=== PATIENT | male | born 1955 | race Caucasian/White ===

== ENCOUNTER 2017-11-25 11:12 | Emergency (ER) | payer MEDICAID ==
[~2017-11-25] VITALS: Ht 177.8 cm; Wt 63.0 kg
[2017-11-25 11:55] VITALS: BP 120/60
== END 2017-11-25 11:56 | disposition left against medical advice (07) ==
LOC: ED 11:50
DX: B86 Scabies (principal); F17.200 Nicotine dependence, unspecified, uncomplicated
CPT/HCPCS: 99283

== ENCOUNTER 2018-01-28 18:54 | Inpatient (IN) | payer MEDICAID ==
[~2018-01-28] VITALS: Ht 177.8 cm; Wt 64.5 kg
[2018-01-28] MEDS ORDERED: AZITHROMYCIN 250 MG TABLET PO ONE (19:30)
[2018-01-28] MEDS ORDERED: ALBUTEROL/IPRATROPIUM 2.5MG/0.5MG, 3 ML NPPB SCH (19:30)
[2018-01-28] MEDS ORDERED: ACETAMINOPHEN 325 MG TABLET PO ONE (19:30)
[2018-01-28] MEDS ORDERED: ALBUTEROL/IPRATROPIUM 2.5MG/0.5MG, 3 ML ONE (19:31)
[2018-01-28] MEDS ORDERED: AZITHROMYCIN 250 MG TABLET ONE (19:36)
[2018-01-28] MEDS ORDERED: ACETAMINOPHEN 325 MG TABLET ONE (19:36)
[2018-01-28 19:56] LABS: ALBUMIN 3.3 g/dL (3.4-5.0); ANION GAP 8 mmol/L (5-15); CALCIUM 8.7 mg/dL (8.5-10.1); CHLORIDE 104 mmol/L (98-107); CREATININE 0.68 mg/dL (0.7-1.3)
[2018-01-28 20:05] LABS: MD YES; MEAN CORPUSCULAR HGB CONC 33.8 g/dL (33.2-36.2); MEAN CORPUSCULAR VOLUME 100.4 fL (81-97); MEAN PLATELET VOLUME 7.2 fL (7.4-10.4); PLATELET COUNT 197 x10^3/uL (130-400); RED BLOOD COUNT 3.74 x10^6/uL (4.38-5.82); RED CELL DISTRIBUTION WIDTH 17.5 % (9.4-14.8); TROPONIN I 0.357 ng/mL (0.000-0.045)
[2018-01-28 20:10] LABS: BAND#(MANUAL) 2.67 x10^3/uL; BANDS%(MANUAL) 17 % (0-7); LYMPH#(MANUAL) 0.63 x10^3/uL (1-3.4); LYMPHS% (MANUAL) 4 % (22-44); MONOS#(MANUAL) 0.94 x10^3/uL (0.3-2.7); MONOS% (MANUAL) 6 % (2-9); SEG#(MANUAL) 11.46 x10^3/uL (1.8-6.8); SEGS% (MANUAL) 73 % (42-75)
[2018-01-28 20:12] LABS: <PLATELET ESTIMATE> ADEQUATE; <PLT MORPHOLOGY> NORMAL PLT MORPH; <RBC MORPHOLOGY> NORMAL
[2018-01-28] MEDS ORDERED: ASPIRIN 325 MG TABLET ONE (20:13)
[2018-01-28 20:14] LABS: PMNS WITH VACUOLES 1+
[2018-01-28] MEDS ORDERED: IBUP-1223 PO (20:20)
[2018-01-28] MEDS ORDERED: ALBU1.25 NEB (20:20)
[2018-01-28] MEDS ORDERED: SERT100T PO (20:20)
[2018-01-28] MEDS ORDERED: FLUT1DIS3 INH (20:20)
[2018-01-28] MEDS ORDERED: ASPIRIN 325 MG TABLET PO ONE (20:30)
[2018-01-28] MEDS ORDERED: CEFTRIAXONE 1,000 MG in SODIUM CHLORIDE 0.9% 50 ML IV ONE (20:30)
[2018-01-28] MEDS ORDERED: CEFTRIAXONE PMX 1GM/50ML 50 ML ONE (20:53)
[2018-01-28] MEDS ORDERED: ENOXAPARIN 40 MG/0.4 ML ONE (21:20)
[2018-01-28] MEDS ORDERED: NICOTINE 21 MG/24 HR PATCH.TD24 ONE (21:20)
[2018-01-28] MEDS: NICOTINE 21 MG/24 HR PATCH.TD24 TD SCH (21:22)
[2018-01-28] MEDS: ENOXAPARIN 40 MG/0.4 ML SQ SCH (21:22)
[2018-01-28] MEDS: SODIUM CHLORIDE 0.9% 1,000 ML IV SCH (21:26)
[2018-01-28] MEDS ORDERED: CEFTRIAXONE 2,000 MG in DEXTROSE 5% 50 ML IV SCH (21:30)
[2018-01-28] MEDS ORDERED: ONDANSETRON ODT 4 MG PO PRN (21:30)
[2018-01-28] MEDS ORDERED: ALBUTEROL/IPRATROPIUM 2.5MG/0.5MG, 3 ML NPPB PRN (21:30)
[2018-01-28] MEDS ORDERED: ONDANSETRON 2MG/ML, 2ML IVPush PRN (21:30)
[2018-01-28] MEDS ORDERED: NICOTINE 21 MG/24 HR PATCH.TD24 TD ONE (21:30)
[2018-01-28] MEDS ORDERED: ACETAMINOPHEN 325 MG TABLET PO PRN (21:30)
[2018-01-28] MEDS: AZITHROMYCIN 500 MG in SODIUM CHLORIDE 0.9% 250 ML IV SCH (21:30)
[2018-01-28 21:46] LABS: TROPONIN I 0.357 ng/mL (0.000-0.045)
[2018-01-28 21:55] VITALS: BP 122/73
[2018-01-28] MEDS ORDERED: PIPERONYL BUTOXIDE/PYRETHRINS SHAMPOO TP SCH (23:00)
[2018-01-29 03:30] VITALS: BP 128/77
[2018-01-29 03:56] LABS: BASOPHILS % (AUTO) 0 % (0-1); EOSINOPHILS % (AUTO) 0 % (1-7); LYMPHOCYTES # (AUTO) 1.15 x10^3/uL (1-3.4); LYMPHOCYTES % (AUTO) 7 % (22-44); MD NO; MEAN CORPUSCULAR HGB CONC 33.8 g/dL (33.2-36.2); MEAN CORPUSCULAR VOLUME 100.8 fL (81-97); MEAN PLATELET VOLUME 7.8 fL (7.4-10.4); MONOCYTES # (AUTO) 0.25 x10^3/uL (0.2-0.8); MONOCYTES % (AUTO) 2 % (2-9); NEUTROPHILS # (AUTO) 14.38 x10^3/uL (1.8-6.8); NEUTROPHILS % (AUTO) 91 % (42-75); PLATELET COUNT 181 x10^3/uL (130-400); RED BLOOD COUNT 3.64 x10^6/uL (4.38-5.82); RED CELL DISTRIBUTION WIDTH 17.4 % (9.4-14.8)
[2018-01-29 04:08] LABS: ANION GAP 7 mmol/L (5-15); CALCIUM 8.5 mg/dL (8.5-10.1); CHLORIDE 108 mmol/L (98-107)
[2018-01-29 04:13] LABS: CHOL/HDL RATIO 1.7; CHOLESTEROL, TOTAL 170 mg/dL (140-239); CREATININE 0.56 mg/dL (0.7-1.3); HDL CHOL % 60 % (26-37); HDL CHOLESTEROL (DIRECT) 102 mg/dL (40-60); LDL CHOLESTEROL,CALCULATED 54 mg/dL (54-169); LDL/HDL RATIO 0.5 (0.5-3.0); TRIGLYCERIDES 68 mg/dL (50-200); TROPONIN I 0.187 ng/mL (0.000-0.045); VLDL CHOLESTEROL 14 mg/dL (0-25)
[2018-01-29 08:13] VITALS: BP 127/83
[2018-01-29] MEDS: ALBUTEROL/IPRATROPIUM 2.5MG/0.5MG, 3 ML NPPB SCH ×4 (08:20→19:45)
[2018-01-29] MEDS ORDERED: CEFTRIAXONE 2,000 MG in DEXTROSE 5% 50 ML IV SCH (09:00)
[2018-01-29] MEDS: SODIUM CHLORIDE 0.9% 1,000 ML IV SCH (09:37)
[2018-01-29] MEDS ORDERED: POTASSIUM PHOSPHATE 22 MEQ in SODIUM CHLORIDE 0.9% 500 ML IV ONE (14:00)
[2018-01-29] MEDS ORDERED: LORazepam 1MG TABLET PO PRN ×4 (14:00)
[2018-01-29] MEDS ORDERED: LORazepam 2 MG/ML, 1ML IV PRN ×5 (14:00)
[2018-01-29] MEDS: MULTIVITAMIN 1 TABLET PO SCH (14:51)
[2018-01-29 14:55] VITALS: BP 127/70
[2018-01-29 19:05] VITALS: BP 146/80
[2018-01-29] MEDS: AZITHROMYCIN 500 MG in SODIUM CHLORIDE 0.9% 250 ML IV SCH (21:43)
[2018-01-29] MEDS: ENOXAPARIN 40 MG/0.4 ML SQ SCH (21:43)
[2018-01-29] MEDS: NICOTINE 21 MG/24 HR PATCH.TD24 TD SCH (21:43)
[2018-01-29 22:46] LABS: CLOSTRIDIUM DIFFICILE ANTIGEN NEGATIVE; CLOSTRIDIUM DIFFICILE TOXIN NEGATIVE (Negative)
[2018-01-30 00:37] VITALS: BP 131/71
[2018-01-30 05:27] LABS: ANION GAP 5 mmol/L (5-15); CALCIUM 8.3 mg/dL (8.5-10.1); CHLORIDE 110 mmol/L (98-107); CREATININE 0.52 mg/dL (0.7-1.3)
[2018-01-30] MEDS ORDERED: POTASSIUM CHLORIDE 40 MEQ in SODIUM CHLORIDE 0.9% 500 ML IV ONE (07:00)
[2018-01-30] MEDS: ALBUTEROL/IPRATROPIUM 2.5MG/0.5MG, 3 ML NPPB SCH ×4 (07:50→19:55)
[2018-01-30 07:52] VITALS: BP 125/79
[2018-01-30 07:56] LABS: FREE T4 (FREE THYROXINE) 1.44 ng/dL (0.76-1.46); THYROID STIMULATING HORMONE 3.24 mIU/L (0.358-3.740)
[2018-01-30] MEDS: MULTIVITAMIN 1 TABLET PO SCH (08:01)
[2018-01-30] MEDS: CEFTRIAXONE 2,000 MG in SODIUM CHLORIDE 0.9% 50 ML IV SCH (09:02)
[2018-01-30 09:35] VITALS: BP 119/73
[2018-01-30] MEDS: GUAIFENESIN/DM 200-20MG, 10ML UDC PO PRN ×2 (10:35→21:13)
[2018-01-30] MEDS ORDERED: ERGOCALCIFEROL 50,000 UNIT CAPSULE PO SCH (11:30)
[2018-01-30 14:02] VITALS: BP 130/76
[2018-01-30] MEDS: LORazepam 0.5MG TABLET PO PRN ×2 (14:10→21:13)
[2018-01-30] MEDS ORDERED: OMNIPAQUE 350 MG/ML, 100ML BOTTLE ONE (15:35)
[2018-01-30 19:47] VITALS: BP 127/69
[2018-01-30] MEDS: AZITHROMYCIN 500 MG in SODIUM CHLORIDE 0.9% 250 ML IV SCH (21:12)
[2018-01-30] MEDS: NICOTINE 21 MG/24 HR PATCH.TD24 TD SCH (21:13)
[2018-01-30] MEDS: ENOXAPARIN 40 MG/0.4 ML SQ SCH (21:13)
[2018-01-31 01:23] VITALS: BP 145/66
[2018-01-31 07:06] VITALS: BP 135/74
[2018-01-31] MEDS: ALBUTEROL/IPRATROPIUM 2.5MG/0.5MG, 3 ML NPPB SCH ×4 (08:00→19:15)
[2018-01-31] MEDS: MULTIVITAMIN 1 TABLET PO SCH (08:58)
[2018-01-31] MEDS: GUAIFENESIN/DM 200-20MG, 10ML UDC PO PRN ×4 (08:58→21:12)
[2018-01-31] MEDS: CEFTRIAXONE 2,000 MG in SODIUM CHLORIDE 0.9% 50 ML IV SCH (08:59)
[2018-01-31 14:35] VITALS: BP 109/68
[2018-01-31] MEDS: LORazepam 0.5MG TABLET PO PRN ×2 (15:07→21:12)
[2018-01-31 19:22] VITALS: BP 126/71
[2018-01-31] MEDS: AZITHROMYCIN 500 MG in SODIUM CHLORIDE 0.9% 250 ML IV SCH (21:03)
[2018-01-31] MEDS: ENOXAPARIN 40 MG/0.4 ML SQ SCH (21:03)
[2018-01-31] MEDS: NICOTINE 21 MG/24 HR PATCH.TD24 TD SCH (21:04)
[2018-02-01 01:36] VITALS: BP 139/87
[2018-02-01] MEDS: ALBUTEROL/IPRATROPIUM 2.5MG/0.5MG, 3 ML NPPB SCH ×4 (07:15→19:22)
[2018-02-01] MEDS: GUAIFENESIN/DM 200-20MG, 10ML UDC PO PRN (08:27)
[2018-02-01] MEDS: MULTIVITAMIN 1 TABLET PO SCH (08:27)
[2018-02-01 08:37] VITALS: BP 126/84
[2018-02-01] MEDS: CEFTRIAXONE 2,000 MG in SODIUM CHLORIDE 0.9% 50 ML IV SCH (08:55)
[2018-02-01 13:03] VITALS: BP 126/85
[2018-02-01 20:52] VITALS: BP 143/72
[2018-02-01] MEDS: ENOXAPARIN 40 MG/0.4 ML SQ SCH (21:18)
[2018-02-01] MEDS: AZITHROMYCIN 500 MG in SODIUM CHLORIDE 0.9% 250 ML IV SCH (21:18)
[2018-02-01] MEDS: NICOTINE 21 MG/24 HR PATCH.TD24 TD SCH (21:19)
[2018-02-02 03:45] VITALS: BP 141/87
[2018-02-02] MEDS: ALBUTEROL/IPRATROPIUM 2.5MG/0.5MG, 3 ML NPPB SCH ×3 (06:35→14:31)
[2018-02-02 07:34] VITALS: BP 111/70
[2018-02-02] MEDS: CEFTRIAXONE 2,000 MG in SODIUM CHLORIDE 0.9% 50 ML IV SCH (10:54)
[2018-02-02] MEDS: MULTIVITAMIN 1 TABLET PO SCH (10:54)
[2018-02-02 13:03] VITALS: BP 128/82
[2018-02-02] MEDS ORDERED: PRED5TAB PO (14:26)
[2018-02-02] MEDS ORDERED: MULT1TAB60 PO (14:26)
[2018-02-02] MEDS ORDERED: AZIT500T5 PO (14:26)
[2018-02-02] MEDS ORDERED: IPRA4AER INH (14:26)
[2018-02-02] MEDS ORDERED: ERGO500017 PO (14:26)
[2018-02-02] MEDS ORDERED: CEFD300C37 PO (14:26)
== END 2018-02-02 16:00 | disposition home or self-care (01) | DRG 280 ==
LOC: ED 21:04 → EDIP 21:11 → 4EST 21:50
PROVIDERS: ADMIT Internal Medicine; ATTEND Internal Medicine
DX: I21.4 Non-ST elevation (NSTEMI) myocardial infarction (principal); J96.01 Acute respiratory failure with hypoxia; J15.9 Unspecified bacterial pneumonia; J44.0 Chronic obstructive pulmonary disease with (acute) lower respiratory infection; E44.0 Moderate protein-calorie malnutrition; D63.8 Anemia in other chronic diseases classified elsewhere; E55.9 Vitamin D deficiency, unspecified; F10.10 Alcohol abuse, uncomplicated; Z59.0 Homelessness; G40.909 Epilepsy, unspecified, not intractable, without status epilepticus; F17.210 Nicotine dependence, cigarettes, uncomplicated; Z85.118 Personal history of other malignant neoplasm of bronchus and lung; Z90.2 Acquired absence of lung [part of]; Z68.20 Body mass index [BMI] 20.0-20.9, adult; Z80.42 Family history of malignant neoplasm of prostate; Z82.0 Family history of epilepsy and other diseases of the nervous system
CPT/HCPCS: 36415; 84145; 99285; J7620; 71045; 71275; 80048; 80061; 82040; 82306; 82607; 83605; 83735; 84100; 84439; 84443; 84484; 85025; 87040; 87070; 87205; 87324; 93005; 93306; 94640; 96365; J0456; J0696; J1650; J3480; Q9967; J7030; J7040; J7050; J7512

== ENCOUNTER 2018-04-24 16:37 | Emergency (ER) | payer MEDICAID ==
[~2018-04-24] VITALS: Ht 177.8 cm; Wt 75.0 kg
[~2018-04-24 16:37] MED LIST: ALBU1.25 NEB; AZIT500T5 PO; CEFD300C37 PO; ERGO500017 PO; FLUT1DIS3 INH; IBUP-1223 PO; IPRA4AER INH; MULT1TAB60 PO; PRED5TAB PO; SERT100T PO
[2018-04-24 18:05] LABS: ANION GAP 10 mmol/L (5-15); CHLORIDE 108 mmol/L (98-107); CREATININE 0.65 mg/dL (0.7-1.3)
[2018-04-24 18:09] LABS: TROPONIN I < 0.015 ng/mL (0.000-0.045)
[2018-04-24 18:12] LABS: MD YES; MEAN CORPUSCULAR HEMOGLOBIN 34.3 pg (27.5-34.5); MEAN CORPUSCULAR HGB CONC 34.2 g/dL (33.2-36.2); MEAN CORPUSCULAR VOLUME 100.5 fL (81-97); MEAN PLATELET VOLUME 7.4 fL (7.4-10.4); PLATELET COUNT 130 x10^3/uL (130-400); RED BLOOD COUNT 3.89 x10^6/uL (4.38-5.82)
[2018-04-24 18:15] LABS: BASOS#(MANUAL) 0.06 x10^3/uL (0-0.1); BASOS% (MANUAL) 1 % (0-1); EOS#(MANUAL) 0.11 x10^3/uL (0.0-0.4); EOS% (MANUAL) 2 % (1-7); LYMPH#(MANUAL) 1.82 x10^3/uL (1-3.4); LYMPHS% (MANUAL) 33 % (22-44); MONOS#(MANUAL) 0.44 x10^3/uL (0.3-2.7); MONOS% (MANUAL) 8 % (2-9); REACTIVE LYMPHS # (MANUAL) 0.06 x10^3/uL (0-0); REACTIVE LYMPHS % (MANUAL) 1 % (0-0); SEG#(MANUAL) 3.03 x10^3/uL (1.8-6.8); SEGS% (MANUAL) 55 % (42-75)
[2018-04-24 18:16] LABS: <PLATELET ESTIMATE> ADEQUATE; <PLT MORPHOLOGY> NORMAL PLT MORPH; <RBC MORPHOLOGY> NORMAL
[2018-04-24 21:02] VITALS: BP 110/56
== END 2018-04-24 21:48 | disposition home or self-care (01) ==
LOC: ED 17:35
DX: S01.81XA Laceration without foreign body of other part of head, initial encounter (principal); F10.120 Alcohol abuse with intoxication, uncomplicated
CPT/HCPCS: 12011; 36415; 70450; 71045; 80048; 84484; 85025; 93005; 99285